=== PATIENT | female | born 1950 | race Caucasian/White ===

== ENCOUNTER 2017-04-20 10:00 | Outpatient (CLI) | payer MEDICARE ==
[2016-01-29 10:34] VITALS: BMI 29.0
[~2017-04-20 10:00] MED LIST: ASCORBIC ACID500 MG PO; ASPIRIN325 MG PO; BACLOFEN10 MG PO; FIBERCON625 MG PO; LEVOTHROID88 MCG PO; MOBIC7.5 MG PO; NORCO 10/325 TA1 TA1; NORVASC10 MG PO; OXYBUTYNIN CHLOR5 MG PO; PREMARIN45 GM VG; PRILOSEC20 MG PO; SYNTHROID112 MCG PO; TYLENOL 325 MG325 MG PO; ZOCOR80 MG PO; ZOLOFT100 MG PO
== END 2017-04-20 23:59 | disposition home or self-care (01) ==
LOC: D.MAMMO 10:00
DX: Z12.31 Encounter for screening mammogram for malignant neoplasm of breast (principal)

== ENCOUNTER → 2017-06-01 15:37 | Outpatient (CLI) | payer MEDICARE ==
[2016-01-29 10:34] VITALS: BMI 29.0
== END | disposition home or self-care (01) ==
LOC: D.MAMMO 10:00
DX: R92.8 Other abnormal and inconclusive findings on diagnostic imaging of breast (principal)

== ENCOUNTER → 2018-07-23 12:17 | Outpatient (CLI) | payer OTHER ==
[2016-01-29 10:34] VITALS: BMI 29.0
== END | disposition home or self-care (01) ==
LOC: D.RAD 12:17
DX: M47.11 Other spondylosis with myelopathy, occipito-atlanto-axial region (principal)

== ENCOUNTER → 2018-08-22 08:55 | Outpatient (CLI) | payer OTHER ==
[2016-01-29 10:34] VITALS: BMI 29.0
--- NOTE | ~2018-08-22 | ST ---
PATIENT:DOUG NAGEL MEDICAL RECORD: [id number] SEX: F LOCATION:[facility] ORDER #: ADMISSION DATE: 08/22/18 AGE OF PATIENT: 67 REFERRING PHYSICIAN: INTERPRETING PHYSICIAN: NIKI OH MD DATE OF SERVICE: 08/22/2018 PROCEDURE: Nuclear stress test. INDICATION: Angina, hypertension, hyperlipidemia. DESCRIPTION: The patient was exercised on standard Lexiscan protocol with 26 mCi of sestamibi injected at peak stress, 9 mCi was used previously for rest images. FINDINGS: Gated SPECT reveals preserved ejection fraction at 64% with good wall motion and thickening and brightening throughout all segments. SPECT imaging Cardiolite was used as myocardial fusion agent. There is homogeneous uptake throughout all segments at rest and stress with no evidence of inducible ischemia or previous infarction. OVERALL IMPRESSION: 1. This is a normal nuclear stress test with no evidence of inducible ischemia or previous infarction. 2. Gated SPECT reveals a preserved ejection fraction at 64%. In this patient with ongoing symptomatology, the current scan does not suggest the presence of hemodynamically significant coronary artery disease. Evaluate noncardiac etiology of chest pain. TRANSINT:[id number] Voice Confirmation ID: [id number] DOCUMENT ID: [id number] NIKI OH MD CC: UBALDO ALMANZAR MD [id number] DICTATION DATE: 08/23/18 1611 ACID MIXER: 08/24/18 0927 [facility] CLI 08/22/18 [id number] [place] [address]
== END | disposition home or self-care (01) ==
LOC: D.HCCARDIO 08-21 09:30
PROVIDERS: ATTEND Internal Medicine Interventional Cardiology
DX: I20.9 Angina pectoris, unspecified (principal)

== ENCOUNTER 2018-11-19 19:00 | Outpatient (CLI) | payer OTHER ==
[2016-01-29 10:34] VITALS: BMI 29.0
== END 2018-11-19 23:59 | disposition home or self-care (01) ==
LOC: D.MAMMO 19:00
PROVIDERS: ATTEND Family Medicine
DX: Z12.31 Encounter for screening mammogram for malignant neoplasm of breast (principal)

== ENCOUNTER 2020-03-16 17:30 | Outpatient (CLI) | payer OTHER ==
[2016-01-29 10:34] VITALS: BMI 29.0
== END 2020-03-16 23:59 | disposition home or self-care (01) ==
LOC: D.MAMMO 17:30
PROVIDERS: ATTEND Family Medicine
DX: Z12.31 Encounter for screening mammogram for malignant neoplasm of breast (principal)

== ENCOUNTER → 2020-10-04 13:05 | Day surgery (SDC) | payer OTHER ==
[2016-01-29 10:34] VITALS: BMI 29.0
--- NOTE | ~2020-10-04 | HEMODYNAMI ---
PATIENT:DOUG NAGEL MEDICAL RECORD: [id number] : 50 LOCATION:[facility] ADMISSION DATE: 10/04/20 Generatedon:114:44 Patient name: DOUG NAGEL Patient #: [id number] SSN: D OB: 1950 Date of study: 10/04/2020 Page: Of Hemodynamic Procedure Report Patient Data Patient Demographics Procedure consent was obtained First Name: DOUG Gender: Female Last Name: ROBE : 1950 Patient #: [id number] Age: 69 year(s) Race: Unknown Additional ID: [id number] Contact details [address]: [address] [place] [address] [address] State: [place] City: [place] Zip code: [address] Past Medical History Allergies Allergen Reaction Date Comments Reported Other allergy 10/04/2020 codeine Admission Admission Data Admission Date: 10/04/2020 Admission Time: 13:05 Procedure Procedure Types Cath Procedure Peripheral Cath Diagnostic Procedure Miscellaneous Aspiration/Injection (Joint) Procedure Description Procedure Date Procedure Date: 10/04/2020 Procedure Start Time: 14:35 Procedure End Time: 14:43 Procedure Staff Name Function Cale Basurto MD Performing Physician Chuy Pablo RT Monitor HAROON EDMONDS RT Monitor Procedure Data Cath Procedure Fluoroscopy Diagnostic fluoroscopy Total fluoroscopy Time: 0.4 time: 0.4 min min Diagnostic fluoroscopy Total fluoroscopy dose: 5 dose: 5 mGy mGy Hemodynamics Rest Pre Cath Intra NCS Post Cath Procedure Log Time Note 14:02:18 SAFE-T PLUS MYELOGRAM TRAY opened to sterile field. 14:16:32 Chuy Pablo RT (R) (CV) sent for patient. Start room use. 14:16:34 Time tracking: Regular hours (M-F 7:00 - 5:00) 14:16:36 Signed procedure consent form obtained from patient. 14:16:38 Warm blankets applied, and kamila hugger turned on for patient comfort. 14:16:38 Correct patient and procedure confirmed by team. 14:16:40 - 14:16:57 Patient allergic to Other allergycodeine 14:25:19 Is patient on blood thinner?No 14:25:21 Is the patient allergic to Iodine/contrast media? No. 14:25:27 Right Hip was prepped with betadine and draped in sterile fashion. 14:25:29 - 14:33:36 Physician arrived 14:33:36 --------ALL STOP TIME OUT------ 14:33:37 Final Timeout: patient, procedure, and site verified with staff and physician. All members of the team are in agreement. 14:33:49 Right Hip site verified by team. 14:34:18 Procedure started. 14:34:19 Full Disclosure recording started 14:35:42 Local anesthetic to Right Hip with Lidocaine 1% by Cale Basurto MD.INITIAL ACCESS ONLY 14:42:33 Procedure ended.(Physican Out) 14:42:56 Fluoroscopy time 00.40 minutes. 14:42:58 Fluoroscopy dose: 5 mGy 14:42:58 Flurop Dose total: 5 14:43:07 Post-op/insertion site Right Hip dressed using a Bandaid. 14:43:25 Post procedure instruction explained to patient.Patient verbalizes understanding. 14:43:26 Procedure and supply charges have been captured, reviewed, submitted an d are correct. 14:43:50 Procedure ended. 14:43:50 Full Disclosure recording stopped Device Usage Item Name Manufacture Quantity Catalog Hospital Part Current Minimal Lot# / Number Charge Number Stock Stock Serial# Code SAFE-T [employer] 1 [id number] PLUS MYELOGRAM TRAY Signature Audit Winston Stage Time Signature Unsigned Intra-Procedure 10/04/2020 HAROON EDMONDS RT 2:44:02 PM (R) [facility] [address] [place] [address]
== END | disposition home or self-care (01) ==
LOC: D.RAD 13:05
PROVIDERS: ATTEND Nurse Practitioner Family
DX: M16.11 Unilateral primary osteoarthritis, right hip (principal)

== ENCOUNTER → 2020-10-28 10:42 | Outpatient (CLI) | payer OTHER ==
[2016-01-29 10:34] VITALS: BMI 29.0
== END | disposition home or self-care (01) ==
LOC: D.CT 10:42
PROVIDERS: ATTEND Nurse Practitioner Family
DX: M54.16 Radiculopathy, lumbar region (principal)